=== PATIENT | female | born 1990 | race Caucasian/White ===

== ENCOUNTER 2021-09-23 17:28 | Day surgery (SDC) | payer OTHER ==
[2021-09-23] MEDS ORDERED: hydrALAZINE 20 MG/ML VIAL SLOW IVP PRN (18:09)
[2021-09-23 18:13] VITALS: BMI 41.1
[2021-09-23 18:32] LABS: #Eosinphils 0.1 10x3/uL (0.0-0.5); #Monocytes 0.6 10x3/uL (0.0-1.1); #Neutrophils 6.3 10x3/uL (1.5-8.4); %Basophils 0.3 % (0.0-2.0); %Eosinophils 1.4 % (0.0-6.0); %Lymphocytes 25.1 % (18.0-47.0); %Monocytes 6.4 % (0.0-10.0); %Neutrophils 66.6 % (40.0-75.0); Hemoglobin 12.3 g/dL (12.0-15.5); Mean Corpuscular HGB CONC 33.7 g/dL (32.0-36.0); Mean Corpuscular Hemoglobin 28.6 pg (27.0-33.0); Mean Corpuscular Volume 84.9 fl (81.6-98.3); Mean Platelet Volume 11.3 fl (7.4-10.4); Platelet Count 258 10x3/uL (150-450); RBC Distribution Width 14.6 % (11.5-14.5); White Blood Cell (WBC) Count 9.4 10x3/uL (3.5-10.5)
[2021-09-23 18:47] LABS: ALT (SGPT) 17 U/L (8-55); AST (SGOT) 18 U/L (5-34); Albumin 3.4 g/dL (3.5-5.0); Alkaline Phosphatase 63 U/L (40-110); Anion Gap 14 mmol/L (10-20); BUN (Urea Nitrogen) 7 mg/dL (7.0-18.7); Bilirubin, Total 0.4 mg/dL (0.2-1.2); Calc. Creatinine Clearance 210 mL/min (70-130); Calcium 8.7 mg/dL (7.8-10.44); Carbon Dioxide 20 mmol/L (22-29); Chloride 107 mmol/L (98-107); Glucose 77 mg/dL (70-105); Potassium 3.5 mmol/L (3.5-5.1); Protein, Total 6.4 g/dL (6.0-8.3); Sodium 137 mmol/L (136-145)
[2021-09-23 19:24] LABS: Bilirubin Neg (Negative); Blood, Urine Negative (Negative); Clarity Clear (Clear); Glucose, Urine (Dipstick) Normal (Negative); Ketone, Urine Negative (Negative); Leukocyte Negative (Negative); Nitrite Negative (Negative); Protein, Urine (Dipstick) Negative (Neg-Trace); Urobilinogen Normal mg/dL (Less than 2)
[2021-09-23 19:27] LABS: Urine Culture Reflex No No
[2021-09-23 19:47] LABS: Bacteria/HPF None Seen HPF (None Seen); RBC/HPF None Seen HPF (0-3); Squamous Epithelial None Seen HPF (0-3); WBC/HPF None Seen HPF (0-3)
== END 2021-09-23 20:10 | disposition home or self-care (01) ==
LOC: CSHLD/OP 17:28
PROVIDERS: ATTEND Obstetrics & Gynecology
DX: O26.892 Other specified pregnancy related conditions, second trimester (principal); R10.11 Right upper quadrant pain; O26.612 Liver and biliary tract disorders in pregnancy, second trimester; K76.0 Fatty (change of) liver, not elsewhere classified; O99.212 Obesity complicating pregnancy, second trimester; Z3A.20 20 weeks gestation of pregnancy; Z87.891 Personal history of nicotine dependence; Z79.82 Long term (current) use of aspirin; Z91.048 Other nonmedicinal substance allergy status
CPT/HCPCS: 76705; 80053; 81001; 85025; 99283

== ENCOUNTER 2021-12-30 19:25 | Inpatient (IN) | payer OTHER ==
[2021-12-30 19:52] VITALS: BMI 41.4
[2021-12-30] MEDS ORDERED: hydrALAZINE 20 MG/ML VIAL SLOW IVP PRN ×3 (20:09→20:38)
[2021-12-30] MEDS ORDERED: Promethazine HCl 25 MG/ML VIAL IM PRN (20:10)
[2021-12-30] MEDS ORDERED: hydrALAZINE 20 MG/ML VIAL ONE (20:17)
[2021-12-30 20:36] LABS: Hemoglobin 11.3 g/dL (12.0-15.5); Mean Corpuscular Hemoglobin 27.9 pg (27.0-33.0); Mean Platelet Volume 11.5 fl (7.4-10.4); Platelet Count 275 10x3/uL (150-450); RBC Distribution Width 13.9 % (11.5-14.5); Red Blood Cell (RBC) Count 4.05 10x6/uL (3.90-5.03); White Blood Cell (WBC) Count 12.8 10x3/uL (3.5-10.5)
[2021-12-30 20:38] LABS: Creatinine, Urine 36.88 mg/dL (47-110); Protein, Urine Random Quant Less than 10 mg/dL (1-14)
[2021-12-30] MEDS ORDERED: Labetalol HCl 100 MG/20 ML VIAL SLOW IVP PRN ×2 (20:38)
[2021-12-30] MEDS ORDERED: Calcium Gluc 4.6 MEQ/10 ML (100 MG/ML) SLOW IVP PRN (20:38)
[2021-12-30] MEDS ORDERED: Lorazepam 2 MG/ML VIAL SLOW IVP PRN (20:38)
[2021-12-30] MEDS ORDERED: Magnesium Sulfate 20 gm/500 ml 20 GM/500 ML BAG ONE (20:45)
[2021-12-30] MEDS: Magnesium Sulfate 20 gm/500 ml 20 GM/500 ML BAG IVPB SCH (20:48)
[2021-12-30 20:50] LABS: ALT (SGPT) 35 U/L (8-55); AST (SGOT) 39 U/L (5-34); Albumin 3.3 g/dL (3.5-5.0); Alkaline Phosphatase 147 U/L (40-110); Anion Gap 14 mmol/L (10-20); BUN (Urea Nitrogen) 5 mg/dL (7.0-18.7); Bilirubin, Total 0.3 mg/dL (0.2-1.2); Calc. Creatinine Clearance 171 mL/min (70-130); Calcium 8.7 mg/dL (7.8-10.44); Carbon Dioxide 20 mmol/L (22-29); Chloride 105 mmol/L (98-107); Estimated GFR 102; Globulin 2.9 g/dL (2.4-3.5); Glucose 86 mg/dL (70-105); Potassium 3.2 mmol/L (3.5-5.1); Protein, Total 6.2 g/dL (6.0-8.3); Sodium 136 mmol/L (136-145)
[2021-12-30] MEDS: Betamet Acet/Betamet Na Ph 30 MG/5 ML VIAL IM SCH (20:51)
[2021-12-30 21:08] LABS: Hep B Surf Ag Non-Reactive S/CO (NonReactive); Syphilis Antibody Nonreactive (Nonreactive); Syphilis Antibody Index 0.03 S/CO (<1.00 Non-Reactive)
[2021-12-30] MEDS ORDERED: NIFEdipine XL 30 MG TAB PO SCH (21:15)
[2021-12-31] MEDS ORDERED: Acetaminophen 325 MG TAB PO SCH (02:15)
[2021-12-31] MEDS: Magnesium Sulfate 20 gm/500 ml 20 GM/500 ML BAG IVPB SCH ×2 (05:13→15:09)
[2021-12-31 07:05] LABS: SARS-CoV-2 NAA Rapid Test Not Detected (NotDetected)
[2021-12-31] MEDS ORDERED: NS 0.9% w/ 40 MEQ KCL 1,000 ML IV SCH (07:45)
[2021-12-31] MEDS: Fioricet 325/50/40 mg Tablet PO PRN ×3 (08:00→18:24)
[2021-12-31] MEDS ORDERED: Potassium Chloride 20 MEQ TAB PO SCH (08:00)
[2021-12-31] MEDS ORDERED: NIFEdipine XL 30 MG TAB PO SCH (09:00)
[2021-12-31] MEDS ORDERED: Misoprostol 200 MCG TAB PR PRN (10:17)
[2021-12-31] MEDS ORDERED: Lidocaine 1% (PF) 30 ML VIAL SC PRN (10:17)
[2021-12-31] MEDS ORDERED: Diphenoxylate HCl/Atropine Tablet PO PRN (10:17)
[2021-12-31] MEDS ORDERED: Carboprost 250 MCG/ML AMP IM PRN (10:17)
[2021-12-31] MEDS ORDERED: HYDROcodone/Acetaminophen 5/325 mg Tablet PO PRN ×2 (10:17)
[2021-12-31] MEDS ORDERED: Methylergonovine 0.2 MG/ML VIAL IM PRN (10:17)
[2021-12-31] MEDS ORDERED: Ibuprofen 800 MG TAB PO PRN (10:17)
[2021-12-31] MEDS ORDERED: NS w/ Oxytocin 30 units 500 ML IV SCH ×2 (10:30→12:45)
[2021-12-31] MEDS ORDERED: Penicillin G Potassium 5 MILL.UNITS in Sodium Chloride 0.9% 100 ML IVPB SCH (10:30)
[2021-12-31] MEDS: Ondansetron PF 4 MG/2 ML Vial IVP PRN (12:01)
[2021-12-31] MEDS: valACYclovir 500 MG TAB PO SCH ×3 (12:02→20:53)
[2021-12-31] MEDS ORDERED: Misoprostol 100 MCG TAB PO SCH (12:45)
[2021-12-31] MEDS: Penicillin G 2.5 MILL.units 2.5 MILL.UNITS in Premix Bag 1 BAG IVPB SCH ×3 (14:49→23:37)
[2021-12-31 16:37] LABS: Magnesium 6.8 mg/dL (1.6-2.6)
[2021-12-31] MEDS ORDERED: Morphine 2 MG/ML VIAL SLOW IVP PRN (20:05)
[2021-12-31] MEDS: Metoclopramide HCl 10 MG/2 ML VIAL IVP PRN (20:22)
[2021-12-31 20:28] LABS: Magnesium 6.9 mg/dL (1.6-2.6)
[2021-12-31] MEDS: NIFEdipine XL 30 MG TAB PO SCH (20:54)
[2021-12-31] MEDS: Betamet Acet/Betamet Na Ph 30 MG/5 ML VIAL IM SCH (20:55)
[2021-12-31] MEDS: Misoprostol 100 MCG TAB PO SCH (22:57)
[2022-01-01] MEDS: Misoprostol 100 MCG TAB PO SCH ×3 (03:02→12:40)
[2022-01-01] MEDS: Magnesium Sulfate 20 gm/500 ml 20 GM/500 ML BAG IVPB SCH (03:03)
[2022-01-01] MEDS: Fioricet 325/50/40 mg Tablet PO PRN ×2 (03:09→07:21)
[2022-01-01] MEDS: Penicillin G 2.5 MILL.units 2.5 MILL.UNITS in Premix Bag 1 BAG IVPB SCH ×5 (04:25→20:55)
[2022-01-01] MEDS: Metoclopramide HCl 10 MG/2 ML VIAL IVP PRN (07:27)
[2022-01-01] MEDS: valACYclovir 500 MG TAB PO SCH ×2 (09:34→20:55)
[2022-01-01] MEDS: Saccharomyces boulardii 250 MG CAP PO SCH (09:34)
[2022-01-01] MEDS ORDERED: NS w/ Oxytocin 30 units 500 ML IV SCH (12:45)
[2022-01-01] MEDS ORDERED: Dinoprostone 10 MG Suppository VAG SCH (16:30)
[2022-01-01] MEDS: NIFEdipine XL 30 MG TAB PO SCH (20:55)
[2022-01-01] MEDS: Ondansetron PF 4 MG/2 ML Vial IVP PRN (22:30)
[2022-01-02] MEDS: Magnesium Sulfate 20 gm/500 ml 20 GM/500 ML BAG IVPB SCH (01:28)
[2022-01-02] MEDS: Penicillin G 2.5 MILL.units 2.5 MILL.UNITS in Premix Bag 1 BAG IVPB SCH ×5 (01:28→17:21)
[2022-01-02] MEDS: Saccharomyces boulardii 250 MG CAP PO SCH (09:15)
[2022-01-02] MEDS: valACYclovir 500 MG TAB PO SCH (09:15)
[2022-01-02] MEDS ORDERED: Butorphanol Tartrate 1 MG/ML VIAL SLOW IVP PRN (09:45)
[2022-01-02] MEDS ORDERED: Ondansetron PF 4 MG/2 ML Vial ONE (09:50)
[2022-01-02] MEDS ORDERED: Butorphanol Tartrate 1 MG/ML VIAL ONE (09:50)
[2022-01-02] MEDS ORDERED: Fentanyl 2 mcg/Bup 0.1% Cadd 100 ML ONE (11:42)
[2022-01-02] MEDS ORDERED: Fentanyl 100 MCG/2 ML VIAL ONE (12:21)
[2022-01-02] MEDS ORDERED: Ondansetron PF 4 MG/2 ML Vial IVP PRN (12:54)
[2022-01-02] MEDS ORDERED: Naloxone HCl 0.4 mg/ml Vial IVP PRN ×2 (12:54)
[2022-01-02] MEDS ORDERED: Lactated Ringer's 500 ML IV PRN (12:54)
[2022-01-02] MEDS ORDERED: Promethazine HCl 25 MG/ML VIAL IM PRN (12:54)
[2022-01-02] MEDS ORDERED: Acetaminophen 325 MG TAB PO PRN (12:54)
[2022-01-02] MEDS ORDERED: diphenhydrAMINE 50 MG/ML VIAL IVP PRN (12:54)
[2022-01-02] MEDS ORDERED: Moisturizing Cream (Eucerin) 113 GM JAR TOP PRN (12:54)
[2022-01-02] MEDS ORDERED: ePHEDrine Sulfate 50 MG/10 ML VIAL SLOW IVP PRN (12:54)
[2022-01-02] MEDS ORDERED: Communication Order-Pharmacy FS SCH (13:00)
[2022-01-02] MEDS ORDERED: Fentanyl 2 mcg/Bupivacaine 0.1% Cassette 100 ML EPIDURAL SCH (13:00)
[2022-01-02] MEDS ORDERED: Calcium Carbonate 500 MG ChewTAB PO PRN (16:09)
[2022-01-02] MEDS ORDERED: Carboprost 250 MCG/ML AMP ONE ×2 (17:57→20:50)
[2022-01-02] MEDS ORDERED: Misoprostol 200 MCG TAB ONE (17:57)
[2022-01-02] MEDS ORDERED: Tranexamic Acid 1,000 MG/10 ML VIAL ONE (17:59)
[2022-01-02 23:23] LABS: RapidComm Collect By NURSE
[2022-01-03] MEDS ORDERED: Boostrix 0.5 ML (Tdap) VIAL (>/=7 yrs of age) IM ONE (01:21)
[2022-01-03] MEDS ORDERED: hydrALAZINE 20 MG/ML VIAL SLOW IVP PRN ×2 (01:21→20:25)
[2022-01-03] MEDS ORDERED: Bisacodyl 10 MG SUPP PR PRN ×2 (01:21→20:25)
[2022-01-03] MEDS ORDERED: Milk Of Magnesia 30 ML UDCUP PO PRN ×2 (01:21→20:25)
[2022-01-03] MEDS: Ibuprofen 800 MG TAB PO SCH ×3 (02:05→20:41)
[2022-01-03] MEDS ORDERED: Ibuprofen 800 MG TAB PO SCH (06:00)
[2022-01-03 06:32] LABS: Hemoglobin 11.4 g/dL (12.0-15.5); Mean Corpuscular HGB CONC 34.2 g/dL (32.0-36.0); Mean Corpuscular Hemoglobin 28.2 pg (27.0-33.0); Mean Corpuscular Volume 82.4 fl (81.6-98.3); Mean Platelet Volume 11.6 fl (7.4-10.4); Platelet Count 243 10x3/uL (150-450); RBC Distribution Width 14.3 % (11.5-14.5); Red Blood Cell (RBC) Count 4.04 10x6/uL (3.90-5.03); White Blood Cell (WBC) Count 21.1 10x3/uL (3.5-10.5)
[2022-01-03] MEDS ORDERED: Docusate 100 MG CAP PO SCH (09:00)
[2022-01-03] MEDS ORDERED: Prenatal Vitamin 1 TAB PO SCH (09:00)
[2022-01-03] MEDS: Ferrous Sulfate 325 MG TAB PO SCH (10:07)
[2022-01-03] MEDS ORDERED: NIFEdipine XL 30 MG TAB PO SCH (11:30)
[2022-01-03] MEDS ORDERED: Lanolin Ointment 7 GM TUBE TOP PRN (20:25)
[2022-01-04] MEDS: Ibuprofen 800 MG TAB PO SCH ×4 (03:35→21:29)
[2022-01-04] MEDS: valACYclovir 500 MG TAB PO SCH ×4 (07:40→21:28)
[2022-01-04] MEDS: NIFEdipine XL 30 MG TAB PO SCH ×4 (07:41→21:28)
[2022-01-04] MEDS: Docusate 100 MG CAP PO SCH ×3 (07:41→21:29)
[2022-01-04] MEDS: Saccharomyces boulardii 250 MG CAP PO SCH (07:42)
[2022-01-04] MEDS: Ferrous Sulfate 325 MG TAB PO SCH ×3 (07:42→14:24)
[2022-01-04] MEDS: Acetaminophen 500 MG TAB PO PRN ×2 (08:43→18:28)
[2022-01-04] MEDS ORDERED: NIFEdipine XL 30 MG TAB PO SCH (09:00)
[2022-01-04] MEDS: Misoprostol 100 MCG TAB PO SCH ×2 (09:53→09:54)
[2022-01-04] MEDS: Penicillin G 2.5 MILL.units 2.5 MILL.UNITS in Premix Bag 1 BAG IVPB SCH ×2 (09:54→09:55)
[2022-01-05] MEDS: Acetaminophen 500 MG TAB PO PRN ×2 (02:05→08:23)
[2022-01-05] MEDS: Ibuprofen 800 MG TAB PO SCH (06:12)
[2022-01-05] MEDS: Ferrous Sulfate 325 MG TAB PO SCH (07:40)
[2022-01-05] MEDS: NIFEdipine XL 30 MG TAB PO SCH (08:24)
[2022-01-05] MEDS: valACYclovir 500 MG TAB PO SCH (08:24)
[2022-01-05] MEDS: Docusate 100 MG CAP PO SCH (08:24)
[2022-01-05 11:40] VITALS: BP 145/75; TEMP 98
== END 2022-01-05 10:57 | disposition home or self-care (01) | DRG 805 ==
LOC: CSHLD/OP 19:25 → CSHLD 21:03 → CSHPP 01-04 01:03
PROVIDERS: ADMIT Obstetrics & Gynecology; ATTEND Obstetrics & Gynecology
PROC: 3E0P7VZ Introduction of Hormone into Female Reproductive, Via Natural or Artificial Opening (ICD-10-PCS; 2021-12-31)
PROC: 10E0XZZ Delivery of Products of Conception, External Approach (ICD-10-PCS; principal; 2022-01-02)
PROC: 3E033VJ Introduction of Other Hormone into Peripheral Vein, Percutaneous Approach (ICD-10-PCS; 2022-01-02)
PROC: 0W8NXZZ Division of Female Perineum, External Approach (ICD-10-PCS; 2022-01-02)
DX: O11.4 Pre-existing hypertension with pre-eclampsia, complicating childbirth (principal); O41.1230 Chorioamnionitis, third trimester, not applicable or unspecified; Z37.0 Single live birth; O10.92 Unspecified pre-existing hypertension complicating childbirth; Z3A.34 34 weeks gestation of pregnancy; Z20.822 Contact with and (suspected) exposure to COVID-19; Z88.8 Allergy status to other drugs, medicaments and biological substances; Z91.048 Other nonmedicinal substance allergy status; O42.013 Preterm premature rupture of membranes, onset of labor within 24 hours of rupture, third trimester; O76 Abnormality in fetal heart rate and rhythm complicating labor and delivery; O71.82 Other specified trauma to perineum and vulva; O60.14X0 Preterm labor third trimester with preterm delivery third trimester, not applicable or unspecified
CPT/HCPCS: 36415; 51702; 76705; 76815; 80053; 82570; 82805; 83735; 84156; 84550; 85027; 86780; 86850; 86900; 86901; 87340; 88307; 99285; J0360; J0595; J0702; J1200; J2405; J2540; J2765; J3475; J3490; U0002

== ENCOUNTER 2022-08-29 15:46 | Emergency (ER) | payer OTHER ==
[2022-08-29] MEDS ORDERED: Ketorolac Tromethamine 30 MG/ML VIAL ONE (16:39)
== END 2022-08-29 16:38 | disposition home or self-care (01) ==
LOC: CSHERS 15:46
DX: H66.92 Otitis media, unspecified, left ear (principal); H72.92 Unspecified perforation of tympanic membrane, left ear
CPT/HCPCS: 96372; 99282; J1885